=== PATIENT | female | born 1945 | race Caucasian/White ===

== ENCOUNTER 2019-02-28 07:10 | Day surgery (SDC) | payer MEDICARE, OTHER ==
[~2019-02-28 07:10] MED LIST: Lactated Ringers 1,000 ML IV SCH; Lidocaine 1%/Sod Bicarbonate in NS 8.4% 1 ML Syringe IDERM PRN; Sodium Chloride 0.9% 10 ML Syringe FLUSH PRN
[2019-02-28] MEDS ORDERED: Propofol 200 MG/20 ML SDV ONE ×2 (07:30→08:07)
[2019-02-28] MEDS ORDERED: Lidocaine 1% 6 ML ONE (07:31)
--- NOTE | 2019-02-28 07:34 | PCM.PREANE ---
Preanesthetic Assessment - Procedure Proposed Procedure: Colonscopy - Anesthesia/Transfusion/Family Hx Anesthesia History: No Prior Anesthesia Family History of Anesthesia Reaction: No Intubation History: Unknown - Review of Systems General: Night Sweats, Other (cold 2 weeks ago ) Cardiovascular: No Symptoms Gastrointestinal: No Symptoms Neurological: No Symptoms Other: Reports: Thyroid Problems - Physical Assessment NPO Status Date: 02/27/19 NPO Status Time: 23:30 Vital Signs: 99.1, 14, 95, 142/79, 72 Height: 1.65 m ASA Class: 2 Mental Status: Alert & Oriented x3 Airway Class: Mallampati = 1 Dentition: Reports: Dentures (upper and lowers) Thyro-Mental Finger Breadths: 3 Mouth Opening Finger Breadths: 5 ROM/Head Extension: Full Lungs: Clear to Auscultation, Normal Respiratory Effort Cardiovascular: Regular Rate, Regular Rhythm - Allergies Allergies/Adverse Reactions: Allergies Allergy/AdvReac Type Severity Reaction Status Date / Time DEODORANT, SOAP, SHAMPOO, Allergy Blisters Uncoded 02/27/19 10:22 DETERGENT ELASTICS, BRA WIRES, DUSTS Allergy Blisters Uncoded 02/27/19 10:22 HAIR DYE Allergy Other Uncoded 02/27/19 10:22 METAL IN JEWELRY Allergy Rash Uncoded 02/27/19 10:22 - Blood Blood Available: No - Anesthesia Plan Pre-Op Medication Ordered: None - Acknowledgements Anesthesia Type Planned: MAC Pt an Appropriate Candidate for the Planned Anesthesia: Yes Alternatives and Risks of Anesthesia Discussed w Pt/Guardian: Yes Pt/Guardian Understands and Agrees with Anesthesia Plan: Yes PreAnesthesia Questionnaire HEENT History: Reports: Impaired Vision, Other (See Below) Other HEENT History: Full dentures, Retinal tears Cardiovascular History: Reports: High Cholesterol, Hypertension Respiratory History: Reports: None Gastrointestinal History: Reports: Hemorrhoids, Other (See Below) Other Gastrointestinal History: Elevated LFTs Genitourinary History: Reports: UTI, Recurrent Other Genitourinary History: Elevated creatinine 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 Other Musculoskeletal History: Cyst on right index finger Neurological History: Reports: Vertigo Psychiatric History: Reports: None Endocrine/Metabolic History: Reports: Hypothyroidism, Osteopenia Hematologic History: Reports: None Immunologic History: Reports: None Oncologic (Cancer) History: Reports: None Dermatologic History: Reports: None - Past Surgical History Head Surgeries/Procedures: Reports: None HEENT Surgical History: Reports: Other (See Below) Other HEENT Surgeries/Procedures: Laser surgery to fix retinal tears Cardiovascular Surgical History: Reports: None Respiratory Surgical History: Reports: None GI Surgical History: Reports: Colonoscopy Female Surgical History: Reports: Tubal Ligation Endocrine Surgical History: Reports: None Neurological Surgical History: Reports: None Musculoskeletal Surgical History: Reports: None Dermatological Surgical History: Reports: None - SUBSTANCE USE Smoking Status *Q: Never Smoker Second Hand Smoke Exposure: No Recreational Drug Use History: No - HOME MEDS Home Medications: Home Meds Levothyroxine [Synthroid] 50 mcg PO ACBREAKFAST 02/27/19 [History] Losartan/Hydrochlorothiazide [Losartan-HCTZ 50-12.5 MG] 1 tab PO DAILY 02/27/19 [History] Metoprolol Succinate 25 mg PO DAILY 02/27/19 [History] Propylene Glycol/PEG 400/Pf [Systane 0.3-0.4% Eye Drops] 1 drop OP ASDIRECTED PRN 02/27/19 [History] Simvastatin [Zocor] 40 mg PO DAILY 02/27/19 [History] - CURRENT (IN HOUSE) MEDS Current Meds: Current Medications Lactated Ringer's (Ringers, Lactated) 1,000 mls @ 125 mls/hr IV ASDIRECTED NASREEN Stop: 02/28/19 23:00 Lidocaine/Sodium Bicarbonate (Buffered Lidocaine 1% In Ns 8.4%) 0.25 ml IDERM ONETIME PRN PRN Reason: Prior to IV Start Stop: 02/28/19 18:00 Sodium Chloride (Saline Flush) 10 ml FLUSH ASDIRECTED PRN PRN Reason: Keep Vein Open Stop: 02/28/19 18:00
--- NOTE | 2019-02-28 08:42 | PCM48HPAN ---
Post Anesthesia Note - EVALUATION WITHIN 48HRS OF ANESTHETIC Vital Signs in Normal Range: Yes Patient Participated in Evaluation: Yes Respiratory Function Stable: Yes Airway Patent: Yes Cardiovascular Function Stable: Yes Hydration Status Stable: Yes Pain Control Satisfactory: Yes Nausea and Vomiting Control Satisfactory: Yes Mental Status Recovered: Yes Vital Signs: Last Vital Signs Temp 37.3 C 02/28/19 07:10 Pulse 72 02/28/19 07:10 Resp 14 02/28/19 07:10 BP 142/79 H 02/28/19 07:10 Pulse Ox 95 02/28/19 07:10
--- NOTE | 2019-02-28 12:42 | OR ---
DATE OF OPERATION: 02/28/2019 SURGEON: Angel Go MD PREOPERATIVE DIAGNOSIS: Colorectal cancer screening. POSTOPERATIVE DIAGNOSIS: Colorectal cancer screening. OPERATION PERFORMED: Screening colonoscopy. FINDINGS: Normal colonoscopy. Excellent bowel prep. No polyps were identified. No diverticulosis was identified. DISPOSITION: Stable at the end of the procedure. ANESTHESIA: MAC. PATHOLOGY: None. INDICATION: The patient is a 73-year-old female, a decade out from her last colonoscopy. She is asymptomatic. She was offered a screening colonoscopy per the standard of care. She was fully informed of the major risks, benefits, and alternatives. The risks include, but are not limited to perforation of the colon, bleeding, the risks of anesthesia, and the possibility of further surgery among others. She gave informed consent of what was done. DESCRIPTION OF PROCEDURE: The patient was brought to the gastro suite and placed in the left lateral decubitus position. She was given monitored anesthesia. Digital rectal exam was performed. This was unremarkable. I introduced the colonoscope into the rectum with copious lubrication. I advanced the scope with gentle forward pressure keeping the lumen in view at all times. I documented the cecum photographically at 8:09. A thorough careful examination lasting 9 minutes demonstrated no polyps, no diverticulosis, no mucosal lesions of any kind. She had an excellent bowel prep. At the end of the procedure, the scope was withdrawn. She had no complications and tolerated the procedure well. PLAN: She does not need any further screening colonoscopies. ESTIMATED BLOOD LOSS: MMODAL /[id number]
== END 2019-02-28 09:09 | disposition home or self-care (01) ==
LOC: JD.SDS 07:10
PROVIDERS: ATTEND Surgery
DX: Z12.11 Encounter for screening for malignant neoplasm of colon (principal); E78.5 Hyperlipidemia, unspecified; I10 Essential (primary) hypertension; E03.9 Hypothyroidism, unspecified; E78.00 Pure hypercholesterolemia, unspecified; Z91.048 Other nonmedicinal substance allergy status; Z79.899 Other long term (current) drug therapy
CPT/HCPCS: 45378; J2001; J2704; J7120